=== PATIENT | male | born 1980 | race Caucasian/White ===

== ENCOUNTER 2019-06-10 09:56 | Inpatient (IN) | payer OTHER ==
[~2019-06-10] VITALS: Ht 180.3 cm; Wt 68.2 kg
[2019-06-10] MEDS ORDERED: KETOROLAC TROMETHAMINE 30 MG/ML VIAL IM ONE (11:00)
[2019-06-10] MEDS ORDERED: ChlordiazePOXIDE HCL 25 MG CAPSULE PO ONE (11:00)
[2019-06-10 11:12] LABS: BASOPHILS % (AUTO) 0.4 % (0.0-2.0); EOSINOPHILS % (AUTO) 0.1 % (1.0-6.0); HEMATOCRIT 41.2 % (41-53); HEMOGLOBIN 13.9 g/dL (13.5-17.5); LYMPHOCYTES # (AUTO) 0.9 K/uL (1.0-4.8); LYMPHOCYTES % (AUTO) 10.5 % (22.0-44.0); MEAN CORPUSCULAR HEMOGLOBIN 29.1 pg (26.0-34.0); MEAN CORPUSCULAR HGB CONC 33.8 G/dL (31.0-37.0); MEAN CORPUSCULAR VOLUME 86 fL (80-100); MONOCYTES # (AUTO) 0.4 K/uL (0.1-1.0); NEUTROPHILS # (AUTO) 7.2 K/uL (1.8-7.7); PLATELET COUNT (AUTO) 295 K/uL (150-450); RED BLOOD CELL COUNT(AUTO) 4.79 MIL/uL (4.50-5.90); RED CELL DISTRIBUTION WIDTH 12.4 % (11.5-14.5)
[2019-06-10 11:23] LABS: ANION GAP 9 mmol/L (8-16); CALCIUM, TOTAL 9.5 mg/dL (8.8-10.5); CARBON DIOXIDE 28 mmol/L (22-29); CHLORIDE 103 mmol/L (98-107); CREATININE 0.89 mg/dL (0.60-1.30); GLOMERULAR FILTR. RATE CALC > 60 mL/min (>60); GLUCOSE,RANDOM 114 mg/dL (70-110); POTASSIUM 4.9 mmol/L (3.5-5.1); SODIUM SERUM 140 mmol/L (136-145); UREA NITROGEN, BLOOD 10 mg/dL (7-18)
[2019-06-10 11:30] LABS: ALANINE AMINOTRANSFERASE 20 U/L (12-78); ALKALINE PHOSPHATASE 93 U/L (46-116); ASPARTATE AMINOTRANSFERASE 15 U/L (15-37); BILIRUBIN,TOTAL 0.5 mg/dL (0.1-1.0); TOTAL PROTEIN, SERUM 7.8 g/dL (6.4-8.2)
[2019-06-10 11:35] LABS: APPEARANCE,URINE CLEAR (CLEAR); BILIRUBIN,URINE NEGATIVE (NEGATIVE); GLUCOSE, URINE (UA) NEGATIVE (NEGATIVE); KETONES,URINE 40 mg/dL (NEGATIVE); LEUKOCYTE ESTERASE ,URINE NEGATIVE (NEGATIVE); NITRATE,URINE NEGATIVE (NEGATIVE); OCCULT BLOOD,URINE NEGATIVE (NEGATIVE); PROTEIN,URINE NEGATIVE (NEGATIVE); UROBILINOGEN,URINE 0.2 mg/dL (<=1.0)
[2019-06-10 11:40] LABS: AMPHET/METH SCREEN,URINE POSITIVE (NEGATIVE); BARBITURATE SCREEN, URINE NEGATIVE (NEGATIVE); BENZODIAZEPINES SCREEN,URINE NEGATIVE (NEGATIVE); CANNABINOID SCREEN,URINE POSITIVE (NEGATIVE); COCAINE SCREEN,URINE NEGATIVE (NEGATIVE); METHADONE SCREEN, URINE NEGATIVE (NEGATIVE); OPIATE SCREEN,URINE POSITIVE (NEGATIVE)
[2019-06-10 11:44] LABS: PHENCYCLIDINE SCREEN,URINE NEGATIVE (NEGATIVE)
[2019-06-10] MEDS ORDERED: LOPERAMIDE HCL 2 MG CAPSULE PO PRN (13:00)
[2019-06-10] MEDS ORDERED: NICOTINE 21 MG/24 HOUR PATCH TD ONE (13:00)
[2019-06-10] MEDS ORDERED: METOCLOPRAMIDE HCL 5 MG/ML 2 ML VIAL IVP PRN (13:00)
[2019-06-10] MEDS ORDERED: DICYCLOMINE HCL 10 MG CAPSULE PO PRN (13:00)
[2019-06-10] MEDS ORDERED: MAGNESIUM SULFATE 2 GM, MVI, ADULT NO.1 WITH VIT K 10 ML, THIAMINE HCL 100 MG, FOLIC AC... IV ONE ×5 (13:00)
[2019-06-10 16:02] VITALS: BP 123/78
[2019-06-10 19:15] VITALS: BP 129/80
[2019-06-10] MEDS: TEMAZEPAM 15 MG CAPSULE PO SCH (21:05)
[2019-06-10 23:45] VITALS: BP 148/80
[2019-06-11] MEDS: LORazepam 2 MG/ML VIAL IVP PRN ×2 (03:17→23:07)
[2019-06-11 05:02] VITALS: BP 141/97
[2019-06-11 07:30] LABS: ALANINE AMINOTRANSFERASE 13 U/L (12-78); ALBUMIN 3.5 g/dL (3.4-5.0); ALKALINE PHOSPHATASE 90 U/L (46-116); ANION GAP 11 mmol/L (8-16); ASPARTATE AMINOTRANSFERASE 13 U/L (15-37); BILIRUBIN,TOTAL 0.4 mg/dL (0.1-1.0); CALCIUM, TOTAL 8.8 mg/dL (8.8-10.5); CARBON DIOXIDE 25 mmol/L (22-29); CHLORIDE 103 mmol/L (98-107); GLOMERULAR FILTR. RATE CALC > 60 mL/min (>60); GLUCOSE,RANDOM 111 mg/dL (70-110); POTASSIUM 3.7 mmol/L (3.5-5.1); SODIUM SERUM 139 mmol/L (136-145); TOTAL PROTEIN, SERUM 7.1 g/dL (6.4-8.2); UREA NITROGEN, BLOOD 11 mg/dL (7-18)
[2019-06-11 07:35] VITALS: BP 127/69
[2019-06-11 11:20] VITALS: BP 123/67
[2019-06-11 15:13] VITALS: BP 132/95
[2019-06-11] MEDS: NICOTINE 14 MG/24 HOUR PATCH TD SCH (16:17)
[2019-06-11] MEDS: ACETAMINOPHEN/CODEINE 300-15 MG TABLET PO PRN (18:09)
[2019-06-11 19:44] VITALS: BP 133/88
[2019-06-11] MEDS: TEMAZEPAM 15 MG CAPSULE PO SCH (20:12)
[2019-06-12] VITALS (7 sets, daily range): BP systolic 113–142; BP diastolic 56–89
[2019-06-12] MEDS: NICOTINE 14 MG/24 HOUR PATCH TD SCH ×2 (08:30→12:53)
[2019-06-12] MEDS: ACETAMINOPHEN/CODEINE 300-15 MG TABLET PO PRN (17:14)
[2019-06-12] MEDS: LORazepam 2 MG/ML VIAL IVP PRN (19:38)
[2019-06-12] MEDS: TEMAZEPAM 15 MG CAPSULE PO SCH (20:56)
[2019-06-12] MEDS ORDERED: IBUPROFEN 400 MG TABLET PO PRN (22:30)
[2019-06-13 05:15] VITALS: BP 133/86
[2019-06-13 07:55] VITALS: BP 130/90
== END 2019-06-13 10:30 | DRG 897 ==
LOC: EMS 10:01 → 6S 12:18
PROVIDERS: ADMIT Internal Medicine; ATTEND Internal Medicine
DX: F11.23 Opioid dependence with withdrawal (principal); F17.200 Nicotine dependence, unspecified, uncomplicated; F12.90 Cannabis use, unspecified, uncomplicated; F15.129 Other stimulant abuse with intoxication, unspecified; Z88.0 Allergy status to penicillin; Z79.899 Other long term (current) drug therapy
CPT/HCPCS: 96372; G0480; J1885; J2060; J2765; J3411; J3475; J3490; J7030